=== PATIENT | female | born 1985 | race Caucasian/White ===

== ENCOUNTER 2020-06-26 14:59 | Emergency (ER) | payer SELFPAY | END 2020-06-26 19:03 | disposition home or self-care (01) | LOC: ED 14:59 | DX: S86.811A Strain of other muscle(s) and tendon(s) at lower leg level, right leg, initial encounter (principal); X58.XXXA Exposure to other specified factors, initial encounter; Y93.89 Activity, other specified; Y92.89 Other specified places as the place of occurrence of the external cause; Y99.8 Other external cause status ==

== ENCOUNTER 2021-02-10 16:43 | Emergency (ER) | payer SELFPAY ==
[2021-02-10] MEDS ORDERED: PREDNISONE20 M1 PO (18:56)
[2021-02-10] MEDS ORDERED: PROVENTIL HFA6.7 GM INH (18:56)
== END 2021-02-10 19:02 | disposition home or self-care (01) ==
LOC: ED 16:43
DX: J20.8 Acute bronchitis due to other specified organisms (principal); Z20.822 Contact with and (suspected) exposure to COVID-19

== ENCOUNTER 2021-03-17 19:11 | Emergency (ER) | payer SELFPAY ==
[~2021-03-17] VITALS: Wt 77.1 kg
[~2021-03-17 19:11] MED LIST: PREDNISONE20 M1 PO; PROVENTIL HFA6.7 GM INH
[2021-03-17 21:29] LABS: BILIRUBIN Negative (Negative); BLOOD Negative (Negative); CLARITY Cloudy (Clear); COLOR Orange (Yellow); GLUCOSE Negative (Negative); KETONE Negative (Negative); LEUKO ESTERASE Trace (Negative); NITRITE Positive (Negative)
[2021-03-17 21:36] LABS: BASO # 0.1 10*3/uL (0.0-0.1); BASO % 1.1 % (0.0-1.0); EOS # 0.1 10*3/uL (0.0-0.4); EOS % 0.9 % (1.0-4.0); HEMATOCRIT 37.2 % (37.0-47.0); LYMPH # 1.5 10*3/uL (1.3-4.4); LYMPH % 22.5 % (27.0-41.0); MEAN CELL VOLUME 101.9 fl (81.0-99.0); MEAN CORPUSCULAR HGB 32.9 pg (27.0-31.0); MEAN CORPUSCULAR HGB CONC 32.3 g/dl (33.0-37.0); MEAN PLATELET VOLUME 10.6 fl (9.6-12.3); MONO # 0.4 10*3/uL (0.1-1.0); MONO % 6.3 % (3.0-9.0); NEUT # 4.5 10*3/uL (2.3-7.9); PLATELET COUNT AUTOMATED 234 10*3/uL (130-400); RED BLOOD COUNT 3.65 10*6/uL (4.10-5.10); WHITE BLOOD COUNT 6.5 10*3/uL (4.8-10.8)
[2021-03-17 21:41] LABS: BACTERIA 4+; EPITHELIAL CELLS 21-30
[2021-03-17 21:51] LABS: ALBUMIN 3.4 gm/dl (3.1-4.5); ALKALINE PHOSPHATASE 133 U/L (45-117); BUN 7 mg/dl (7-24); CHLORIDE 99 mmol/L (98-107); LIPASE 119 U/L (73-393); POTASSIUM 4.1 mmol/L (3.5-5.1); SGOT/AST 175 IU/L (3-35); SGPT/ALT 98 U/L (12-78); SODIUM 134 mmol/L (136-145); TOTAL PROTEIN 7.8 gm/dL (6.4-8.2)
[2021-03-18] MEDS ORDERED: CEPHALEXIN500 M1 PO (00:08)
== END 2021-03-18 00:28 | disposition home or self-care (01) ==
LOC: ED 19:11
PROVIDERS: Emergency Medicine
DX: N39.0 Urinary tract infection, site not specified (principal); Z79.899 Other long term (current) drug therapy

== ENCOUNTER 2022-04-05 21:48 | Inpatient (IN) | payer OTHER ==
[~2022-04-05] VITALS: Ht 160 cm; Wt 83.9 kg
[~2022-04-05 21:48] MED LIST changes: +CEPHALEXIN500 M1 PO
[2022-04-05 21:50] VITALS: BP 125/67
[2022-04-05] MEDS ORDERED: SUBOXONE 8 MG-1 EACH SL (21:56)
[2022-04-05 22:16] LABS: BILIRUBIN 3+ (Negative); BLOOD Negative (Negative); CLARITY Cloudy (Clear); COLOR Dark Yellow (Yellow); GLUCOSE Negative (Negative); KETONE Negative (Negative); LEUKO ESTERASE 1+ (Negative); NITRITE Positive (Negative); PH 6.5 (4.5-8.0)
[2022-04-05 22:27] LABS: EPITHELIAL CELLS 41-50
[2022-04-05 22:28] LABS: BACTERIA 1+
[2022-04-05 22:32] LABS: HEMATOCRIT 29.8 % (37.0-47.0); MEAN CELL VOLUME 108.8 fl (81.0-99.0); MEAN CORPUSCULAR HGB 37.2 pg (27.0-31.0); MEAN CORPUSCULAR HGB CONC 34.2 g/dl (33.0-37.0); MEAN PLATELET VOLUME 11.2 fl (9.6-12.3); PLATELET COUNT AUTOMATED 196 10*3/uL (130-400); RED BLOOD COUNT 2.74 10*6/uL (4.10-5.10); RED CELL DISTRI WIDTH 23.2 % (0-14.5); WHITE BLOOD COUNT 9.2 10*3/uL (4.8-10.8)
[2022-04-05 22:34] LABS: MANUAL DIFF REFLEX YES
[2022-04-05 22:43] LABS: ACT PARTIAL THROMBO TIME 27.9 SECONDS (20.0-32.1); INTERNATIONAL NORM RATIO 1.2 (2.0-3.5)
[2022-04-05 22:48] LABS: ALKALINE PHOSPHATASE 249 U/L (45-117); BUN 6 mg/dl (7-24); CHLORIDE 97 mmol/L (98-107); POTASSIUM 2.7 mmol/L (3.5-5.1); SGOT/AST 450 IU/L (3-35); SGPT/ALT 59 U/L (12-78); SODIUM 136 mmol/L (136-145); TOTAL PROTEIN 7.2 gm/dL (6.4-8.2)
[2022-04-05 22:58] LABS: PLATELET SUFFICIENCY NORMAL (NORMAL); TOTAL CELLS COUNTED 100 #CELLS
[2022-04-06] VITALS (7 sets, daily range): BP systolic 95–137; BP diastolic 46–72
[2022-04-06 14:04] LABS: URINE AMPHETAMINES < 1000 (1000ng/ml); URINE BARBITURATES > 200 (200ng/ml); URINE BENZODIAZEPINES < 200 (200ng/ml); URINE CANNABINOIDS (THC) < 50 (50ng/ml); URINE COCAINE < 300 (300ng/ml); URINE METHADONE < 300 (300ng/ml); URINE OPIATES > 300 (300ng/ml)
[2022-04-06 14:12] LABS: URINE PHENCYCLIDINE < 25 (25ng/ml)
[2022-04-07] VITALS: BP 114/67
[2022-04-07 07:02] LABS: HEMATOCRIT 27.1 % (37.0-47.0); MEAN CELL VOLUME 108.4 fl (81.0-99.0); MEAN CORPUSCULAR HGB 37.2 pg (27.0-31.0); MEAN CORPUSCULAR HGB CONC 34.3 g/dl (33.0-37.0); MEAN PLATELET VOLUME 11.6 fl (9.6-12.3); PLATELET COUNT AUTOMATED 186 10*3/uL (130-400); RED CELL DISTRI WIDTH 23.9 % (0-14.5); WHITE BLOOD COUNT 7.5 10*3/uL (4.8-10.8)
[2022-04-07 07:10] LABS: CHLORIDE 102 mmol/L (98-107); POTASSIUM 3.2 mmol/L (3.5-5.1); SODIUM 137 mmol/L (136-145)
[2022-04-07 07:11] LABS: MANUAL DIFF REFLEX YES
[2022-04-07 07:18] LABS: ALKALINE PHOSPHATASE 192 U/L (45-117); BUN 7 mg/dl (7-24); CREATININE 0.34 mg/dL (0.55-1.02); SGOT/AST 312 IU/L (3-35); SGPT/ALT 43 U/L (12-78); TOTAL PROTEIN 5.9 gm/dL (6.4-8.2)
[2022-04-07 08:00] VITALS: BP 119/64
[2022-04-07 08:15] LABS: POLYCHROMASIA SLIGHT; TARGET CELLS FEW; TOTAL CELLS COUNTED 100 #CELLS
[2022-04-07 08:16] LABS: PLATELET SUFFICIENCY NORMAL (NORMAL)
[2022-04-07 12:00] VITALS: BP 111/56
[2022-04-07 16:00] VITALS: BP 106/59
[2022-04-07 20:00] VITALS: BP 109/61
[2022-04-08] VITALS: BP 113/64
[2022-04-08 05:06] LABS: HBSAG Negative (Negative); HEP B CORE AB, IGM Negative (Negative); HEPATITIS C ANTIBODY 0.6 (0.0-0.9)
[2022-04-08 06:11] LABS: BUN 6 mg/dl (7-24); CHLORIDE 102 mmol/L (98-107); CREATININE 0.29 mg/dL (0.55-1.02); POTASSIUM 3.4 mmol/L (3.5-5.1); SGOT/AST 261 IU/L (3-35); SGPT/ALT 38 U/L (12-78); SODIUM 136 mmol/L (136-145)
[2022-04-08 06:30] LABS: ALKALINE PHOSPHATASE 194 U/L (45-117)
[2022-04-08 08:00] VITALS: BP 118/60
[2022-04-08 12:00] VITALS: BP 105/53
[2022-04-08 16:00] VITALS: BP 93/45
[2022-04-08 20:00] VITALS: BP 110/63
[2022-04-09 00:30] VITALS: BP 110/60
[2022-04-09 06:30] LABS: ALKALINE PHOSPHATASE 199 U/L (45-117); BUN 4 mg/dl (7-24); CHLORIDE 103 mmol/L (98-107); CREATININE 0.31 mg/dL (0.55-1.02); POTASSIUM 3.5 mmol/L (3.5-5.1); SGOT/AST 225 IU/L (3-35); SGPT/ALT 36 U/L (12-78); SODIUM 135 mmol/L (136-145); TOTAL PROTEIN 6.4 gm/dL (6.4-8.2)
[2022-04-09 08:00] VITALS: BP 123/62
[2022-04-09] MEDS ORDERED: CIPRO500 MG PO (11:08)
[2022-04-09] MEDS ORDERED: ALDACTONE25 MG PO (11:09)
[2022-04-09] MEDS ORDERED: AMITRIPTYLINE25 MG PO (11:09)
[2022-04-09 12:00] VITALS: BP 119/61
== END 2022-04-09 13:55 | disposition home or self-care (01) | DRG 463 ==
LOC: ED 21:48 → 4E 04-06 09:02 → EDHOLD 04-06 09:02 → 4E 04-06 15:54
PROVIDERS: Emergency Medicine; Family Medicine; Registered Nurse; ADMIT Family Medicine; ATTEND Family Medicine
DX: N30.00 Acute cystitis without hematuria (principal); B17.9 Acute viral hepatitis, unspecified; K70.31 Alcoholic cirrhosis of liver with ascites; E87.2 Acidosis; E43 Unspecified severe protein-calorie malnutrition; D53.9 Nutritional anemia, unspecified; E87.6 Hypokalemia; F10.239 Alcohol dependence with withdrawal, unspecified; K76.0 Fatty (change of) liver, not elsewhere classified; E80.6 Other disorders of bilirubin metabolism; R74.01 Elevation of levels of liver transaminase levels; F17.210 Nicotine dependence, cigarettes, uncomplicated; F19.10 Other psychoactive substance abuse, uncomplicated; Z98.891 History of uterine scar from previous surgery

== ENCOUNTER 2022-05-13 13:39 | Inpatient (IN) | payer OTHER ==
[2022-05-13] VITALS (7 sets, daily range): BP systolic 85–119; BP diastolic 50–64
[~2022-05-13] VITALS: Ht 160 cm; Wt 71.0 kg
[~2022-05-13 13:39] MED LIST changes: +ALDACTONE25 MG PO; +AMITRIPTYLINE25 MG PO; +CIPRO500 MG PO; +SUBOXONE 8 MG-1 EACH SL
[2022-05-13 14:54] LABS: HEMATOCRIT 30.2 % (37.0-47.0); MEAN CELL VOLUME 110.2 fl (81.0-99.0); MEAN CORPUSCULAR HGB CONC 31.8 g/dl (33.0-37.0); MEAN PLATELET VOLUME 10.5 fl (9.6-12.3); PLATELET COUNT AUTOMATED 290 10*3/uL (130-400); RED BLOOD COUNT 2.74 10*6/uL (4.10-5.10); RED CELL DISTRI WIDTH 22.5 % (0-14.5); WHITE BLOOD COUNT 20.9 10*3/uL (4.8-10.8)
[2022-05-13 15:00] LABS: MANUAL DIFF REFLEX YES
[2022-05-13 15:06] LABS: ACT PARTIAL THROMBO TIME 33.6 SECONDS (20.0-32.1); INTERNATIONAL NORM RATIO 1.5 (2.0-3.5)
[2022-05-13 15:10] LABS: ALKALINE PHOSPHATASE 319 U/L (45-117); BUN 4 mg/dl (7-24); CHLORIDE 103 mmol/L (98-107); CREATININE 0.39 mg/dL (0.55-1.02); LIPASE 202 U/L (73-393); POTASSIUM 3.1 mmol/L (3.5-5.1); SGOT/AST 157 IU/L (3-35); SGPT/ALT 24 U/L (12-78); SODIUM 137 mmol/L (136-145); TOTAL PROTEIN 6.6 gm/dL (6.4-8.2)
[2022-05-13 15:23] LABS: BETA-HCG, QUANT < 1.0 mIU/mL (1-3)
[2022-05-13 16:04] LABS: PLATELET SUFFICIENCY NORMAL (NORMAL); TOTAL CELLS COUNTED 100 #CELLS
[2022-05-13 16:06] LABS: OVALOCYTES FEW; TARGET CELLS FEW
[2022-05-14] VITALS (8 sets, daily range): BP systolic 104–118; BP diastolic 49–68
[2022-05-14 05:11] LABS: ALKALINE PHOSPHATASE 235 U/L (45-117); BUN 7 mg/dl (7-24); CHLORIDE 104 mmol/L (98-107); CREATININE 0.39 mg/dL (0.55-1.02); POTASSIUM 3.2 mmol/L (3.5-5.1); SGOT/AST 96 IU/L (3-35); SGPT/ALT 17 U/L (12-78); SODIUM 137 mmol/L (136-145); TOTAL PROTEIN 6.6 gm/dL (6.4-8.2)
[2022-05-14 06:20] LABS: HEMATOCRIT 25.5 % (37.0-47.0); MEAN CELL VOLUME 109.4 fl (81.0-99.0); MEAN CORPUSCULAR HGB 35.2 pg (27.0-31.0); MEAN CORPUSCULAR HGB CONC 32.2 g/dl (33.0-37.0); PLATELET COUNT AUTOMATED 264 10*3/uL (130-400); RED BLOOD COUNT 2.33 10*6/uL (4.10-5.10); RED CELL DISTRI WIDTH 22.5 % (0-14.5); WHITE BLOOD COUNT 16.7 10*3/uL (4.8-10.8)
[2022-05-14 06:26] LABS: MANUAL DIFF REFLEX YES
[2022-05-14 07:04] LABS: PLATELET SUFFICIENCY NORMAL (NORMAL); POLYCHROMASIA SLIGHT; TARGET CELLS FEW; TOTAL CELLS COUNTED 100 #CELLS; TOXIC GRANULATION SLIGHT
[2022-05-14 07:05] LABS: OVALOCYTES FEW
[2022-05-14 14:07] LABS: BF LYMPHOCYTES 23 %; BF MACROPHAGES 33 %; BF MESOTHELIALS 16 %; BF NEUTROPHILS 28 %
[2022-05-15 08:00] VITALS: BP 98/50
[2022-05-15 10:49] LABS: HEMATOCRIT 26.1 % (37.0-47.0); MEAN CELL VOLUME 110.6 fl (81.0-99.0); MEAN CORPUSCULAR HGB 35.6 pg (27.0-31.0); MEAN CORPUSCULAR HGB CONC 32.2 g/dl (33.0-37.0); MEAN PLATELET VOLUME 10.8 fl (9.6-12.3); PLATELET COUNT AUTOMATED 224 10*3/uL (130-400); RED BLOOD COUNT 2.36 10*6/uL (4.10-5.10); RED CELL DISTRI WIDTH 21.9 % (0-14.5); WHITE BLOOD COUNT 16.8 10*3/uL (4.8-10.8)
[2022-05-15 11:01] LABS: MANUAL DIFF REFLEX YES
[2022-05-15 11:12] LABS: ALKALINE PHOSPHATASE 243 U/L (45-117); BUN 8 mg/dl (7-24); CHLORIDE 103 mmol/L (98-107); CREATININE 0.47 mg/dL (0.55-1.02); POTASSIUM 3.3 mmol/L (3.5-5.1); SGOT/AST 103 IU/L (3-35); SGPT/ALT 13 U/L (12-78); SODIUM 136 mmol/L (136-145); TOTAL PROTEIN 5.8 gm/dL (6.4-8.2)
[2022-05-15 11:35] LABS: BASOPHILS 1 % (0-1); PLATELET SUFFICIENCY NORMAL (NORMAL); TOTAL CELLS COUNTED 100 #CELLS
[2022-05-15 11:36] LABS: POLYCHROMASIA SLIGHT
[2022-05-15 12:00] VITALS: BP 119/52
[2022-05-15 16:00] VITALS: BP 120/54
[2022-05-15 20:00] VITALS: BP 108/60
[2022-05-16] VITALS: BP 106/62
[2022-05-16 06:25] LABS: HEMATOCRIT 28.1 % (37.0-47.0); MEAN CELL VOLUME 110.6 fl (81.0-99.0); MEAN CORPUSCULAR HGB 34.6 pg (27.0-31.0); MEAN CORPUSCULAR HGB CONC 31.3 g/dl (33.0-37.0); PLATELET COUNT AUTOMATED 230 10*3/uL (130-400); RED BLOOD COUNT 2.54 10*6/uL (4.10-5.10); RED CELL DISTRI WIDTH 22.2 % (0-14.5); WHITE BLOOD COUNT 15.7 10*3/uL (4.8-10.8)
[2022-05-16 06:28] LABS: MANUAL DIFF REFLEX YES
[2022-05-16 06:41] LABS: BUN 9 mg/dl (7-24); CHLORIDE 104 mmol/L (98-107); CREATININE 0.37 mg/dL (0.55-1.02); POTASSIUM 3.8 mmol/L (3.5-5.1); SODIUM 138 mmol/L (136-145)
[2022-05-16 07:02] LABS: BILIRUBIN 3+ (Negative); BLOOD Negative (Negative); CLARITY Cloudy (Clear); COLOR Dark Yellow (Yellow); GLUCOSE Negative (Negative); KETONE Negative (Negative); LEUKO ESTERASE 1+ (Negative); NITRITE Positive (Negative); PH 6.5 (4.5-8.0); SPECIFIC GRAVITY >= 1.030 (1.001-1.030)
[2022-05-16 07:16] LABS: PLATELET SUFFICIENCY NORMAL (NORMAL); TOTAL CELLS COUNTED 100 #CELLS
[2022-05-16 07:17] LABS: POLYCHROMASIA SLIGHT
[2022-05-16 08:00] VITALS: BP 100/40
[2022-05-16 08:19] LABS: BACTERIA 2+; MUCOUS 1+; RBC 0-2 rbc/hpf (0-2)
[2022-05-16 12:00] VITALS: BP 102/56
[2022-05-16 16:00] VITALS: BP 101/54
[2022-05-16 20:00] VITALS: BP 112/59
[2022-05-17] VITALS: BP 108/59
[2022-05-17 06:25] LABS: ALKALINE PHOSPHATASE 247 U/L (45-117); BUN 10 mg/dl (7-24); CHLORIDE 105 mmol/L (98-107); CREATININE 0.38 mg/dL (0.55-1.02); POTASSIUM 3.8 mmol/L (3.5-5.1); SGOT/AST 105 IU/L (3-35); SGPT/ALT 14 U/L (12-78); SODIUM 138 mmol/L (136-145); TOTAL PROTEIN 6.1 gm/dL (6.4-8.2)
[2022-05-17 06:27] LABS: HEMATOCRIT 29.4 % (37.0-47.0); MEAN CELL VOLUME 111.8 fl (81.0-99.0); MEAN CORPUSCULAR HGB CONC 31.3 g/dl (33.0-37.0); MEAN PLATELET VOLUME 11.2 fl (9.6-12.3); PLATELET COUNT AUTOMATED 239 10*3/uL (130-400); RED BLOOD COUNT 2.63 10*6/uL (4.10-5.10); RED CELL DISTRI WIDTH 22.2 % (0-14.5); WHITE BLOOD COUNT 13.3 10*3/uL (4.8-10.8)
[2022-05-17 06:29] LABS: INTERNATIONAL NORM RATIO 1.6 (2.0-3.5)
[2022-05-17 06:38] LABS: MANUAL DIFF REFLEX YES
[2022-05-17 07:44] LABS: OVALOCYTES FEW; POLYCHROMASIA SLIGHT; TARGET CELLS FEW; TOTAL CELLS COUNTED 100 #CELLS; TOXIC GRANULATION SLIGHT; VACUOLATION OF NEUTROPHILS SLIGHT
[2022-05-17 07:45] LABS: PLATELET SUFFICIENCY NORMAL (NORMAL)
[2022-05-17 08:00] VITALS: BP 111/52
[2022-05-17 12:00] VITALS: BP 108/53
[2022-05-17 16:00] VITALS: BP 92/58
[2022-05-17 20:00] VITALS: BP 108/53
[2022-05-18] VITALS: BP 110/49
[2022-05-18 06:16] LABS: HEMATOCRIT 26.7 % (37.0-47.0); MEAN CELL VOLUME 110.3 fl (81.0-99.0); MEAN CORPUSCULAR HGB 35.1 pg (27.0-31.0); MEAN CORPUSCULAR HGB CONC 31.8 g/dl (33.0-37.0); PLATELET COUNT AUTOMATED 242 10*3/uL (130-400); RED BLOOD COUNT 2.42 10*6/uL (4.10-5.10); RED CELL DISTRI WIDTH 22.2 % (0-14.5); WHITE BLOOD COUNT 12.5 10*3/uL (4.8-10.8)
[2022-05-18 06:33] LABS: BUN 10 mg/dl (7-24); CHLORIDE 106 mmol/L (98-107); CREATININE 0.42 mg/dL (0.55-1.02); POTASSIUM 3.7 mmol/L (3.5-5.1); SGOT/AST 96 IU/L (3-35); SGPT/ALT 13 U/L (12-78); SODIUM 138 mmol/L (136-145); TOTAL PROTEIN 5.9 gm/dL (6.4-8.2)
[2022-05-18 06:37] LABS: ALKALINE PHOSPHATASE 232 U/L (45-117)
[2022-05-18 06:53] LABS: MANUAL DIFF REFLEX YES
[2022-05-18 07:54] LABS: TOTAL CELLS COUNTED 100 #CELLS
[2022-05-18 07:55] LABS: PLATELET SUFFICIENCY NORMAL (NORMAL); POLYCHROMASIA SLIGHT; SCHISTOCYTES FEW; TARGET CELLS FEW; TOXIC GRANULATION SLIGHT; VACUOLATION OF NEUTROPHILS SLIGHT
[2022-05-18 08:00] VITALS: BP 104/52
[2022-05-18 12:00] VITALS: BP 105/61
[2022-05-18] MEDS ORDERED: OXYCODONE HCL5 MG PO (13:24)
[2022-05-18] MEDS ORDERED: ALDACTONE25 MG PO (13:24)
[2022-05-18] MEDS ORDERED: NATURE'S BLEND F1 MG PO (13:24)
== END 2022-05-18 15:37 | disposition home or self-care (01) | DRG 720 ==
LOC: ED 13:39 → EDHOLD 18:10 → 5E 18:10 → EDHOLD 20:35 → 5E 05-14 20:39
PROVIDERS: Emergency Medicine; Internal Medicine; Physical Therapist; Student in an Organized Health Care Education/Training Program; ADMIT Internal Medicine; ATTEND Internal Medicine
PROC: 0W9G3ZZ Drainage of Peritoneal Cavity, Percutaneous Approach (ICD-10-PCS; principal; 2022-05-14)
DX: A41.9 Sepsis, unspecified organism (principal); R65.20 Severe sepsis without septic shock; F10.10 Alcohol abuse, uncomplicated; E43 Unspecified severe protein-calorie malnutrition; K72.00 Acute and subacute hepatic failure without coma; E87.2 Acidosis; K70.31 Alcoholic cirrhosis of liver with ascites; K76.6 Portal hypertension; K76.0 Fatty (change of) liver, not elsewhere classified; J91.8 Pleural effusion in other conditions classified elsewhere; R16.1 Splenomegaly, not elsewhere classified; D53.9 Nutritional anemia, unspecified; E87.6 Hypokalemia; E88.09 Other disorders of plasma-protein metabolism, not elsewhere classified; E80.6 Other disorders of bilirubin metabolism; E53.8 Deficiency of other specified B group vitamins; R73.9 Hyperglycemia, unspecified; J98.11 Atelectasis; R74.01 Elevation of levels of liver transaminase levels; F17.219 Nicotine dependence, cigarettes, with unspecified nicotine-induced disorders; K65.2 Spontaneous bacterial peritonitis; Z98.891 History of uterine scar from previous surgery; Z68.27 Body mass index [BMI] 27.0-27.9, adult

== ENCOUNTER → 2022-05-20 | Outpatient (CLI) | payer OTHER ==
[~2022-05-20] MED LIST changes: +NATURE'S BLEND F1 MG PO; +OXYCODONE HCL5 MG PO
== END | disposition home or self-care (01) ==
LOC: RESCLI 13:33
PROVIDERS: ATTEND Internal Medicine
DX: K70.30 Alcoholic cirrhosis of liver without ascites (principal); R16.1 Splenomegaly, not elsewhere classified; F10.10 Alcohol abuse, uncomplicated; K70.31 Alcoholic cirrhosis of liver with ascites; R74.01 Elevation of levels of liver transaminase levels; Z79.899 Other long term (current) drug therapy

== ENCOUNTER → 2022-05-20 | Outpatient (CLI) | payer OTHER ==
[2022-05-20 12:46] LABS: MEAN CELL VOLUME 112.2 fl (81.0-99.0); MEAN CORPUSCULAR HGB 35.4 pg (27.0-31.0); MEAN CORPUSCULAR HGB CONC 31.5 g/dl (33.0-37.0); MEAN PLATELET VOLUME 10.7 fl (9.6-12.3); PLATELET COUNT AUTOMATED 278 10*3/uL (130-400); RED BLOOD COUNT 2.94 10*6/uL (4.10-5.10); RED CELL DISTRI WIDTH 20.6 % (0-14.5); WHITE BLOOD COUNT 13.9 10*3/uL (4.8-10.8)
[2022-05-20 13:00] LABS: MANUAL DIFF REFLEX YES
[2022-05-20 13:04] LABS: ALKALINE PHOSPHATASE 240 U/L (45-117); BUN 8 mg/dl (7-24); CHLORIDE 102 mmol/L (98-107); POTASSIUM 3.7 mmol/L (3.5-5.1); SGOT/AST 129 IU/L (3-35); SGPT/ALT 21 U/L (12-78); SODIUM 135 mmol/L (136-145); TOTAL PROTEIN 7.2 gm/dL (6.4-8.2)
[2022-05-20 13:09] LABS: OVALOCYTES FEW; PLATELET SUFFICIENCY NORMAL (NORMAL); POLYCHROMASIA SLIGHT; TARGET CELLS FEW; TOTAL CELLS COUNTED 100 #CELLS
[2022-05-20 13:10] LABS: ROULEAUX SLIGHT
[2022-05-21 08:08] LABS: HBSAG Negative (Negative); HEP B CORE AB, IGM Negative (Negative); HEPATITIS C ANTIBODY 0.2 (0.0-0.9)
== END | disposition home or self-care (01) ==
LOC: LAB 12:17
PROVIDERS: Nurse Practitioner Family; ATTEND Internal Medicine
DX: Z11.59 Encounter for screening for other viral diseases (principal); R53.83 Other fatigue; F11.20 Opioid dependence, uncomplicated

== ENCOUNTER 2022-12-16 20:17 | Emergency (ER) | payer OTHER ==
[~2022-12-16] VITALS: Ht 157.4 cm; Wt 63.5 kg
[~2022-12-16 20:17] MED LIST changes: +AMOXICILLIN500 M2 PO; +Carafate1 GM PO; +Clarithromycin250 MG PO; +NATURE'S BLEND100 M2 PO; +ONDANSETRON4 MG SL; +OXYCODONE HCL5 M1 PO; +PANTOPRAZOLE SO40 MG PO
[2022-12-16] MEDS ORDERED: MEDROL DOSEPAK4 MG PO (21:16)
[2022-12-16] MEDS ORDERED: HYDROXYZINE HCL25 MG PO (21:16)
[2022-12-16] MEDS ORDERED: PEPCID40 MG PO (21:16)
== END 2022-12-16 21:30 | disposition home or self-care (01) ==
LOC: ED 20:17
DX: L25.9 Unspecified contact dermatitis, unspecified cause (principal); K21.9 Gastro-esophageal reflux disease without esophagitis; Z79.899 Other long term (current) drug therapy; F17.210 Nicotine dependence, cigarettes, uncomplicated; Z98.890 Other specified postprocedural states

== ENCOUNTER 2025-06-14 16:38 | Emergency (ER) | payer MEDICAID ==
[~2025-06-14] VITALS: Ht 157.4 cm; Wt 80.7 kg
[~2025-06-14 16:38] MED LIST changes: +HYDROXYZINE HCL25 MG PO; +MEDROL DOSEPAK4 MG PO; +PEPCID40 MG PO
[2025-06-14] MEDS ORDERED: ADDERALL XR 3030 MG PO (16:42)
[2025-06-14] MEDS ORDERED: BUPRENORPHINE HY8 MG SL (16:42)
[2025-06-14] MEDS ORDERED: ADDERALL 10 MG10 MG PO (16:43)
[2025-06-14] MEDS ORDERED: Ondansetron Hydrochloride 4 MG/2 ML VIAL IV ONE (16:55)
[2025-06-14] MEDS ORDERED: NITROGLYCERIN 1 IN PACKET T ONE (16:55)
[2025-06-14 17:19] LABS: MEAN CELL VOLUME 112.0 fl (81.0-99.0); MEAN CORPUSCULAR HGB 38.4 pg (27.0-31.0); MEAN PLATELET VOLUME 11.0 fl (9.6-12.3); NUCLEATED RED BLOOD CELL 0.0 % (0.0-0.0); NUCLEATED RED BLOOD CELL 0.0 10*3/uL (0.0-0.0); PLATELET COUNT AUTOMATED 115 10*3/uL (130-400); RED CELL DISTRI WIDTH 16.6 % (0-14.5)
[2025-06-14 17:21] LABS: MANUAL DIFF REFLEX YES
[2025-06-14 17:40] LABS: BASOPHILS 2 % (0-1); BUN 8 mg/dl (9-23); CPK 42 U/L (34-171); PLATELET SUFFICIENCY LOW (NORMAL); STOMATOCYTE FEW
[2025-06-14] MEDS ORDERED: Ondansetron4 MG PO (18:49)
[2025-06-14] MEDS ORDERED: PROTONIX40 MG PO (18:49)
[2025-06-14] MEDS ORDERED: CARAFATE1 G1 PO (18:49)
[2025-06-14] MEDS ORDERED: REGLAN10 M1 PO (18:49)
== END 2025-06-14 19:30 | disposition home or self-care (01) ==
LOC: ED 16:38
PROVIDERS: Emergency Medicine
DX: K29.70 Gastritis, unspecified, without bleeding (principal); R07.2 Precordial pain; F17.200 Nicotine dependence, unspecified, uncomplicated; Z79.899 Other long term (current) drug therapy; Z98.890 Other specified postprocedural states